=== PATIENT | female | born 1995 | race Caucasian/White ===

== ENCOUNTER 2024-05-29 06:16 | Outpatient (REF) | payer OTHER, SELFPAY ==
--- NOTE | ~2024-05-29 | US_ITS ---
EXAMINATION: US RETROPERITONEUM HISTORY: PAIN TECHNIQUE: Real-time grayscale ultrasound imaging of the kidneys was performed and images were reviewed. COMPARISON: There are no prior studies for comparison. FINDINGS: Right kidney: The right kidney measures 9.6 x 5.8 x 4.5 cm. Renal parenchymal echotexture and thickness are normal. There are no masses. There is no hydronephrosis or renal calculi. Left Kidney: The left kidney measures 9.8 x 5.5 x 4.2 cm. Renal parenchymal echotexture and thickness are normal. There are no masses. There is no hydronephrosis or renal calculi. The urinary bladder is unremarkable. Bilateral ureteral jets are identified. Before voiding, the urinary bladder measured 7.9 x 5.7 x 6.6 cm, for an estimated volume of 154 mL. After voiding, the urinary bladder measured 3.6 x 2.5 x 0.9 cm, for an estimated volume of 4 mL. US/US retroperitoneal comp IMPRESSION: Unremarkable renal ultrasound. Post void bladder residual of 4 mL. Electronically signed by: Wild Rose MD 05/29/2024 12:10 PM EDT
--- OUTSIDE RECORDS SUMMARY | 2024-05-29 06:19 | XMS_ITS ---
Author Name [facility] Organization Unknown Care Team Organization Name Specialty Phone Email Start Date End Duane viera [employer] [email or web address] 05/28/2023 [employer] [email or web address] 05/27/2023
== END 2024-05-29 06:17 | disposition home or self-care (01) ==
LOC: HO.UMASIMG 06:16
PROVIDERS: Visit Provider Pediatrics
DX: N28.9 Disorder of kidney and ureter, unspecified (principal); R10.84 Generalized abdominal pain; R20.8 Other disturbances of skin sensation
CPT/HCPCS: 76770

== ENCOUNTER → 2024-05-29 11:21 | Outpatient (BNV) | payer OTHER, SELFPAY | PROVIDERS: Visit Provider Radiology Diagnostic Radiology | DX: K68.9 Other disorders of retroperitoneum (principal) | CPT/HCPCS: 76770 ==